=== PATIENT | female | born 1970 | race Two or more races ===

== ENCOUNTER 2018-10-24 09:36 | Inpatient (IN) | payer MEDICAID ==
[2018-10-02 14:47] LABS: BILIRUBIN, URINE NEGATIVE (NEGATIVE); COLOR,URINE PALE YELLOW; GLUCOSE, URINE (UA) NEGATIVE (NEGATIVE); KETONES,URINE NEGATIVE (NEGATIVE); LEUKOCYTE ESTERASE ,URINE NEGATIVE (NEGATIVE); NITRITE,URINE NEGATIVE (NEGATIVE); PH,URINE 5 (4.5-8.0); PROTEIN,URINE NEGATIVE (NEGATIVE); UROBILINOGEN,URINE NORMAL MG/DL (0.0-1.0)
[2018-10-02 14:48] LABS: BASOPHILS % (AUTO) 1.4 % (0.0-2.0); HEMATOCRIT 37.8 % (37.0-47.0); HEMOGLOBIN 12.5 G/DL (12.0-16.0); LYMPHOCYTES % (AUTO) 20.2 % (20.0-45.0); MEAN CORPUSCULAR VOLUME 91 FL (80-99); MONOCYTES % (AUTO) 11.2 % (1.0-10.0); NEUTROPHILS % (AUTO) 65.2 % (45.0-75.0); PLATELET COUNT 368 K/UL (150-450); RED BLOOD COUNT 4.18 M/UL (4.20-5.40); RED CELL DISTRIBUTION WIDTH 15.3 % (11.6-14.8); WHITE BLOOD COUNT 8.1 K/UL (4.8-10.8)
[2018-10-02 14:49] LABS: APPEARANCE,URINE CLEAR
[2018-10-02 15:04] LABS: ANION GAP 11 mmol/L (5-15); BLOOD UREA NITROGEN 16 mg/dL (7-18); CALCIUM 9.8 MG/DL (8.5-10.1); CARBON DIOXIDE 25 MMOL/L (21-32); CHLORIDE 102 MMOL/L (98-107); CREATININE 0.9 MG/DL (0.55-1.30); POTASSIUM 3.8 MMOL/L (3.5-5.1); SODIUM 138 MMOL/L (136-145)
--- NOTE | 2018-10-03 14:22 | Cardiology Report ---
APPROVED REPORT EKG Measurement Heart [id number] NM [id number] [id number] Normal sinus rhythm Right axis deviation Abnormal ECG
--- NOTE | 2018-10-09 14:30 | Pre-op HX & Phy Repo 2 SIG ---
DATE OF ADMISSION: 10/10/2018 SCHEDULED FOR SURGERY: October 10, 2018. HISTORY OF PRESENT ILLNESS: The patient is a 48-year-old female in overall stable health with carcinoma of the right breast, metastatic to axillary lymph nodes, status post neoadjuvant chemotherapy. The patient presented in March 2018 with a 9 cm right breast mass and enlarged palpable right axillary lymph nodes. Core biopsy revealed invasive carcinoma, lobular versus ductal metastatic to axillary lymph nodes. The mass was filling the central breast, although not fixed to the chest wall. There was inversion of the nipple. The patient received neoadjuvant chemotherapy. The tumor was estrogen receptor and progesterone receptor positive, HER2 negative. Her last chemotherapy was September 13, 2018. She has a persistent large central mass and will undergo right modified radical mastectomy. She underwent genetic testing by Oncology, reportedly negative. She had previously been on hormone replacement therapy that she has stopped. PAST MEDICAL HISTORY AND MEDICATIONS: Lisinopril and thyroid. ALLERGIES: Aspirin. OPERATIONS: None. FAMILY HISTORY: There is no family history of breast cancer. PHYSICAL EXAMINATION: GENERAL: The patient is 5 foot 5 inches, 224 pounds. VITAL SIGNS: Within normal limits. HEENT: Within normal limits. LUNGS: Clear. HEART: Regular rhythm. BREASTS: Large and ptotic with the right breast somewhat contracted. Left breast is unremarkable. Right breast has a large central mass with inverted nipple, but the mass is not fixed to the underlying chest wall. There is no longer palpable axillary lymphadenopathy and there was no supraclavicular lymphadenopathy. ABDOMEN: Soft. PELVIC AND RECTAL: Per primary care. EXTREMITIES: Without edema. NEUROLOGIC: Physiologic. IMPRESSION: Stage III carcinoma right breast with metastatic disease to axillary lymph nodes, status post neoadjuvant chemotherapy. PLAN: Right modified radical mastectomy including lymph node dissection. I had a full discussion with the patient regarding the nature of her condition, the nature of the surgery, indications, alternatives, options, and risks including bleeding, infection, need for additional treatment pending final pathology, potential need for radiation despite mastectomy, neuritis or neuralgia, scarring, etc. All questions have been answered. She understands and agrees to proceed. Kelechi Villegas M.D. : DARIEN JOB#: [id number] CC: SARAN
--- NOTE | 2018-10-23 16:30 | Pre-op HX & Phy Repo 2 SIG ---
DATE OF ADMISSION: 10/24/2018 SCHEDULED FOR SURGERY: October 24, 2018. HISTORY OF PRESENT ILLNESS: The patient is a 48-year-old female in overall stable health, who has invasive carcinoma of the right breast, metastatic to axillary lymph nodes, who was scheduled to undergo right modified radical mastectomy. The patient was seen in March of 2018 with a 9 cm right breast mass and enlarged axillary lymph nodes. Biopsy revealed invasive carcinoma, lobular versus ductal, metastatic to the axillary lymph nodes. The mass was not fixed to the chest wall. The estrogen and progesterone receptors were positive, HER2 was negative. The patient had been taking postmenopausal hormones, which she stopped. She was seen by Oncology and received neoadjuvant chemotherapy that ended on 09/13/2018. She has a persistent large central mass with nipple inversion, but the palpable axillary nodes have resolved and she is going to undergo right modified radical mastectomy. PAST MEDICAL HISTORY AND MEDICATIONS: Lisinopril and thyroid. OPERATIONS: Dental and right ear ALLERGIES: Aspirin. REVIEW OF SYSTEMS: the patient is nulliparous PHYSICAL EXAMINATION: GENERAL: The patient is 5 feet 5 inches, 224 pounds. VITAL SIGNS: Her vital signs are within normal limits. HEENT: Within normal limits. LUNGS: Clear. HEART: Regular rhythm. BREASTS: Large and ptotic. The left breast is unremarkable. The right breast has a persistent large central mass with nipple inversion. There is no axillary or supraclavicular lymphadenopathy. ABDOMEN: Soft. PELVIC AND RECTAL: Per primary care. EXTREMITIES: Without edema. Prior toenail infections of fingers and toes resolved with antifungal cream and Augmentin. NEUROLOGIC: Physiologic. IMPRESSION: Stage III carcinoma, right breast with metastatic disease to axillary lymph node, status post neoadjuvant chemotherapy. PLAN: Right modified radical mastectomy. I have had a complete discussion with the patient regarding the nature of her condition, the nature of the surgery, indications, alternatives, options, and risks including bleeding, infection, injury to adjacent structures or organs, neuritis, need for additional surgery, chemotherapy, possible radiation therapy based on final pathology reports, need for drains. flap ischemia, other complications of healing, etc. All questions have been answered. The patient understands and agrees to proceed under general anesthesia. Don Schiller, M.D. DR: JUANCARLOS JOB#: [id number] CC: SARAN
[~2018-10-24] VITALS: Ht 165.1 cm; Wt 123.5 kg
[2018-10-24] VITALS (10 sets, daily range): BP systolic 122–143; BP diastolic 67–86
[2018-10-24] MEDS ORDERED: ARMOUR THYROID30 MG ORAL (10:19)
[2018-10-24] MEDS ORDERED: LISINOPRIL10 MG ORAL (10:19)
[2018-10-24] MEDS ORDERED: XANAX1 MG ORAL (10:19)
--- NOTE | 2018-10-24 11:06 | Pre-Procedure Note/Attestation ---
Pre-Procedure Note/Attestation Complete Prior to Procedure Planned Procedure: right Procedure Narrative: right modified radical mastectomy Indications for Procedure Pre-Operative Diagnosis: carcinoma right breast Attestation I attest that I discussed the nature of the procedure; its benefits; risks and complications; and alternatives (and the risks and benefits of such alternatives ), prior to the procedure, with the patient (or the patient's legal customer care representative). I attest that, if there was a reasonable possibility of needing a blood transfusion, the patient (or the patient's legal customer care representative) was given the [facility] standardized written summary, pursuant to the [place] Blood Safety Act ([place] Health and Safety Code # 1645, as amended). I attest that I re-evaluated the patient just prior to the surgery and that there has been no change in the patient's H&P, except as documented below:none Kelechi Villegas MD Oct 24, 2018 11:06
[2018-10-24] MEDS ORDERED: fentaNYL 100 mcg/2 mL IV ONE (11:20)
[2018-10-24] MEDS ORDERED: Lidocaine 1% MPF 10mg/ml 5ml ONE (11:20)
[2018-10-24] MEDS ORDERED: Midazolam 2mg/2ml Inj ONE (11:20)
[2018-10-24] MEDS ORDERED: Propofol 200mg/20ml IV ONE (11:20)
[2018-10-24] MEDS ORDERED: LR 1000ml 1,000 ML IVLG SCH (11:28)
--- NOTE | 2018-10-24 11:28 | Anethesia Preoperative Eval ---
Anesthesia Pre-op PMH/ROS General Date of Evaluation: Oct 24, 2018 Anesthesiologist: Fabrizio ASA Score: ASA 3 Mallampati Score Class I : Soft palate, uvula, fauces, pillars visible Class II: Soft palate, uvula, fauces visible Class III: Soft palate, base of uvula visible Class IV: Only hard plate visible Mallampati Classification: Class II Surgeon: Bakari Diagnosis: Right breasts cancer Surgical Procedure: right modified radical mastectomy Anesthesia History: none Family History: no anesthesia problems Allergies: Coded Allergies: ASPIRIN (Verified Allergy, Severe, Hives, 10/24/18) Patient NPO?: Yes NPO Date: Oct 23, 2018 NPO Time: 2358 Past Medical History Cardiovascular: Reports: HTN; Denies: CAD, [place], valve dz, arrhythmia, other Pulmonary: Denies: asthma, COPD, NUBIA, other Gastrointestinal/Genitourinary: Denies: GERD, CRI, ESRD, other Neurologic/Psychiatric: Reports: depression/anxiety; Denies: dementia, CVA, TIA, other Endocrine: Reports: hypothyroidism; Denies: DM, steroids, other HEENT: Denies: cataract (L), cataract (R), glaucoma, [place] (L), [place] (R), other Hematology/Immune: Denies: anemia, DVT, bleeding disorder, other Musculoskeletal/Integumentary: Reports: other - Right breast cancer; Denies: OA, RA, DJD, DDD, edema PSxH Narrative: Denies Anesthesia Pre-op Phys. Exam Physician Exam Last Vital Signs Date Time Temp Pulse Resp B/P (MAP) Pulse Ox O2 Delivery O2 Flow Rate FiO2 10/24/18 10:21 Room Air 10/24/18 10:04 97.2 101 18 129/81 (97) 99 Constitutional: NAD Cardiovascular: RRR Respiratory: CTA Airway Exam Mallampati Score: Class II Anesthesia Pre-op A/P Labs see chart Urine Test Test 10/24/18 09:51 Urine HCG, Qualitative Negative (NEGATIVE) Studies Pre-op Studies: EKG - sr Risk Assessment & Plan Assessment: ASA III Plan: GA Status Change Before Surgery: No Pre-Antibiotics Drug: Ancecf 2g Given Within 1 Hr of Incision: Yes Yamilet Vega MD Oct 24, 2018 11:28
[2018-10-24] MEDS ORDERED: Dexamethasone 4mg/ml vial ONE (11:29)
[2018-10-24] MEDS ORDERED: Sterile Water Irrig 1000ml IRRIG ONE (11:30)
[2018-10-24] MEDS ORDERED: LR 1000ml ONE (11:30)
[2018-10-24] MEDS ORDERED: fentaNYL 100 mcg/2 mL IV PRN (11:30)
[2018-10-24] MEDS ORDERED: DiphenhydrAMINE 50mg/ml Inj IVP PRN (11:30)
[2018-10-24] MEDS ORDERED: LORazepam Inj 2mg/ml 1ml IV PRN (11:30)
[2018-10-24] MEDS ORDERED: Metoclopramide 10mg/2ml Inj IVP PRN (11:30)
[2018-10-24] MEDS ORDERED: Midazolam 2mg/2ml Inj IVP PRN (11:30)
[2018-10-24] MEDS ORDERED: Hydromorphone 0.5mg/0.5ml inj IVP PRN (11:30)
[2018-10-24] MEDS ORDERED: NS Irrig 1000ml IRRIG ONE (12:03)
--- NOTE | 2018-10-24 13:51 | Brief Operative Note ---
Immediate Post Operative Note Operative Note Pre-op Diagnosis: carcinoma right breast Procedure: right modified radical mastectomy Post-op Diagnosis: same Post-op Diagnosis: same as pre-op Findings: consistent w/pre-op dx studies Surgeon: kadie Anesthesiologist: bi Specimen: yes - right breast and axillary lymph nodes Complications: none Condition: stable Fluids: see anesthesia record Estimated Blood Loss: minimal Drains: CROW Implant(s) used?: No Kelechi Villegas MD Oct 24, 2018 13:51
--- NOTE | 2018-10-24 13:59 | Immediate Post-Op Evaluation ---
Immediate Post-Op Evalulation Immediate Post-Op Evalulation Procedure: Right modified radical mastectomy Date of Evaluation: Oct 24, 2018 Time of Evaluation: 13:58 IV Fluids: 1.5L Blood Products: 0 Estimated Blood Loss: 25 Urinary Output: 0 Blood Pressure Systolic: 128 Blood Pressure Diastolic: 75 Pulse Rate: 88 Respiratory Rate: 16 O2 Sat by Pulse Oximetry: 92 Temperature (Fahrenheit): 97 Pain Score (1-10): 0 Nausea: No Vomiting: No Complications 0 Patient Status: awake, reacts, patent, none Hydration Status: adequate Drug: Ancef 2g Given Within 1 Hr of Incision: Yes Yamilet Vega MD Oct 24, 2018 13:59
[2018-10-24] MEDS ORDERED: HYDROcodone/Acetamin 5/325 tab ORAL PRN (16:00)
[2018-10-24] MEDS ORDERED: HYDROmorphone 1mg/ml Carpuject SUBQ PRN (16:00)
[2018-10-24] MEDS ORDERED: D5 1/2NS w/KCl 20mEq 1,000 ML IV SCH (16:30)
--- NOTE | 2018-10-24 17:30 | Operative Note - Dictated ---
DATE OF OPERATION: 10/24/2018 SURGEON: Kelechi Villegas M.D. PIPE [employer]EMAN SURGEON: None. ANESTHESIOLOGIST: Dr. Dinh. ANESTHESIA: General endotracheal. PREOPERATIVE DIAGNOSIS: Invasive carcinoma, right breast. POSTOPERATIVE DIAGNOSIS: Invasive carcinoma, right breast. OPERATION PERFORMED: Right modified radical mastectomy. INDICATIONS: The patient presented at the end of last year with a 9 cm mass in her right breast with an inversion of the nipple and a core biopsy revealed invasive carcinoma, lobular versus ductal with metastasis to axillary lymph nodes. She received neoadjuvant chemotherapy, but the large mass centrally in the breast persisted. The palpable axillary lymph nodes resolved. The lesion was estrogen and progesterone receptor positive and HER2 negative. DESCRIPTION OF PROCEDURE: The patient was taken to the operating room and under general endotracheal anesthesia with sequential compression device stockings in place, she was prepped and draped in the usual fashion incorporating the right upper extremity into the sterile field. A transversely oriented elliptical incision was made achieving hemostasis with cautery. Flaps were dissected to the sternum, clavicle, costal margin, latissimus dorsi. The breast was resected including the pectoralis fascia using cautery and the Thunderbeat electrical surgical device for hemostasis. After mobilizing the entire breast, left only by attachments to the axilla, an axillary lymph node dissection was performed starting at the axillary vein achieving hemostasis with the Thunderbeat electrocautery device. The specimen was oriented for the pathology with sutures medial and superior and given off the field. The field was copiously irrigated and hemostasis carefully achieved with cautery through separate stab incisions inferolaterally. Two flat large Noel-Buckley drains were placed, one into the axilla, one under the flaps, both sutured to the skin with 2-0 nylon skin suture. After ascertaining the hemostasis was secured, the incision was closed with interrupted 2-0 Vicryl, deep dermal subcutaneous sutures followed by jesus. When the drains were connected, there was good apposition of the flaps to the chest wall. Dry sterile dressings were applied. Final sponge and needle counts were correct. The patient tolerated the procedure well and left the operating room in good condition. Kelechi Villegas M.D. DR: JUANCARLOS JOB#: [id number] CC:
[2018-10-24] MEDS: ceFAZolin sod 1 GM in D5W 55 ML IV SCH (22:00)
[2018-10-25] VITALS: BP 119/71
[2018-10-25 04:00] VITALS: BP 100/58
[2018-10-25] MEDS: ceFAZolin sod 1 GM in D5W 55 ML IV SCH (05:40)
[2018-10-25 06:15] LABS: BASOPHILS % (AUTO) 0.2 % (0.0-2.0); HEMATOCRIT 34.8 % (37.0-47.0); HEMOGLOBIN 11.6 G/DL (12.0-16.0); LYMPHOCYTES % (AUTO) 13.2 % (20.0-45.0); MEAN CORPUSCULAR VOLUME 88 FL (80-99); MONOCYTES % (AUTO) 6.4 % (1.0-10.0); NEUTROPHILS % (AUTO) 80.1 % (45.0-75.0); PLATELET COUNT 302 K/UL (150-450); RED BLOOD COUNT 3.96 M/UL (4.20-5.40); RED CELL DISTRIBUTION WIDTH 14.7 % (11.6-14.8); WHITE BLOOD COUNT 8.3 K/UL (4.8-10.8)
[2018-10-25 08:00] VITALS: BP 111/67
[2018-10-25 12:00] VITALS: BP 111/68
--- NOTE | 2018-10-25 14:57 | General Progress Note ---
Progress Note Progress Note AVSS Feels okay, ambulates to bathroom, ate breakfast. Pain controlled with [place] earlier Right mastectomy incision dry with small area ischemia superior flap lateral 1/ 3 area - jesus intact CROW drains: 100cc #1 since OR and j@2 20 Hgb 11.6 (12.5 pre-op) Imp. Stable with moderate bloody CROW drainage and small area flap ischemia Plan: continue in hospital with IV Ancef, monitor CROW drains q4h and prn RN to teach patient care of drains CBC in AM Kelechi Villegas MD Oct 25, 2018 14:57
[2018-10-25] MEDS ORDERED: ALPRAZolam 0.5mg tab ORAL PRN (15:45)
[2018-10-25] MEDS ORDERED: Lisinopril 20mg tab ORAL SCH (15:45)
[2018-10-25 16:00] VITALS: BP 121/67
--- NOTE | 2018-10-25 16:04 | 48 Hour Post Anesthesia Eval ---
Post Anesthesia Evaluation Procedure: Right modified radical mastectomy Date of Evaluation: Oct 25, 2018 Time of Evaluation: 16:03 Blood Pressure Systolic: 111 0: 68 Pulse Rate: 96 Respiratory Rate: 17 Temperature (Fahrenheit): 97.6 O2 Sat by Pulse Oximetry: 98 Airway: patent Nausea: No Vomiting: No Pain Intensity: 2 Hydration Status: adequate Cardiopulmonary Status: Stable Mental Status/LOC: patient returned to baseline Follow-up Care/Observations: 0 Post-Anesthesia Complications: 0 Follow-up care needed: N/A Henri Perez MD Oct 25, 2018 16:04
[2018-10-25 20:00] VITALS: BP 128/70
[2018-10-26] VITALS: BP 122/69
[2018-10-26 04:00] VITALS: BP 125/75
[2018-10-26 05:43] LABS: BASOPHILS % (AUTO) 0.6 % (0.0-2.0); EOSINOPHILS % (AUTO) 0.6 % (0.0-3.0); HEMATOCRIT 35.1 % (37.0-47.0); HEMOGLOBIN 11.5 G/DL (12.0-16.0); LYMPHOCYTES % (AUTO) 28.1 % (20.0-45.0); MEAN CORPUSCULAR VOLUME 88 FL (80-99); MONOCYTES % (AUTO) 9.6 % (1.0-10.0); NEUTROPHILS % (AUTO) 61.1 % (45.0-75.0); PLATELET COUNT 258 K/UL (150-450); RED BLOOD COUNT 3.99 M/UL (4.20-5.40); RED CELL DISTRIBUTION WIDTH 15.1 % (11.6-14.8); WHITE BLOOD COUNT 8.2 K/UL (4.8-10.8)
[2018-10-26 08:00] VITALS: BP 117/68
--- NOTE | 2018-10-26 08:51 | General Progress Note ---
Progress Note Progress Note AVSS Not needing any analgesics. Hs learned how to care for CROW drains Right mastectomy incision dry and intact, mild ischemia superolateral is decreased CROW 75+25 Hgb stable 11.5 Imp. doing well Plan: discharge with supplies instructions/limitations provided/discussed f/u office 10/31 Kelechi Villegas MD Oct 26, 2018 08:51
[2018-10-26] MEDS ORDERED: Lisinopril 20mg tab ORAL SCH (09:00)
[2018-10-26 09:18] VITALS: BP 117/68
--- NOTE | 2018-10-27 06:30 | Discharge Summary ---
Discharge Summary Discharge Summary _ DATE OF ADMISSION: 10/24/2018 DATE OF DISCHARGE: 10/26/2018 DISCHARGED BY: Dr. Kelechi Villegas HISTORY OF PRESENT ILLNESS: The patient is a 48-year-old female in overall stable health, who has invasive carcinoma of the right breast, metastatic to axillary lymph nodes, who was scheduled to undergo right modified radical mastectomy. The patient was seen in March of 2018 with a 9 cm right breast mass and enlarged axillary lymph nodes. Biopsy revealed invasive carcinoma, lobular versus ductal, metastatic to the axillary lymph nodes. The mass was not fixed to the chest wall. The estrogen and progesterone receptors were positive, HER2 was negative. The patient had been taking postmenopausal hormones, which she stopped. She was seen by Oncology and received neoadjuvant chemotherapy that ended on 09/13/2018. She had a persistent large central mass with nipple inversion, but the palpable axillary nodes have resolved and was admitted to undergo right radical mastectomy. BRIEF HOSPITAL COURSE: Patient was admitted and underwent right radical mastectomy. Two flat large Noel-Buckley drains were placed, one into the axilla, and under the flaps. The patient tolerated the procedure well and left the operating room in good condition. She was admitted for postop care. She was given pain management. She was placed on SCDs for DVT prophylaxis. She was encouraged as of incentive spirometer. Postop day #1, she was able to ambulate to the bathroom and was able to tolerate diet. Pain was controlled with [place]. Right mastectomy incision was dry with small area of ischemia on superior flap lateral one third area. Raz were intact. She was continued with IV Ancef. Drain output was monitored. Postop day #2, she had good pain control and did not require any analgesics. Right mastectomy incision was dry and intact; mild ischemia superolateral was decreased. Hemoglobin was stable. She learned how to care for the drains. Patient was eventually discharged home. PREOPERATIVE DIAGNOSIS: Invasive carcinoma, right breast. POSTOPERATIVE DIAGNOSIS: Invasive carcinoma, right breast. OPERATION PERFORMED: Right modified radical mastectomy. DISPOSITION: Patient was discharged home. DISCHARGE MEDICATIONS: Refer to Discharge Medication List. DISCHARGE INSTRUCTIONS: Follow-up 10/31/2018. I have been assigned to complete a discharge summary on this account, I was not involved with the patient's management. Hailey Castellanos NP Oct 27, 2018 06:30
== END 2018-10-26 10:41 | disposition home or self-care (01) | DRG 362 ==
LOC: SUR 09:36 → 3E 15:16
PROC: 07T50ZZ Resection of Right Axillary Lymphatic, Open Approach (ICD-10-PCS; 2018-10-24)
PROC: 0HTT0ZZ Resection of Right Breast, Open Approach (ICD-10-PCS; principal; 2018-10-24 11:30)
DX: C50.111 Malignant neoplasm of central portion of right female breast (principal); L76.82 Other postprocedural complications of skin and subcutaneous tissue; C77.3 Secondary and unspecified malignant neoplasm of axilla and upper limb lymph nodes
CPT/HCPCS: 36415; 80048; 81001; 81025; 85025; 85610; 85730; 87081; 93005; 94003; 94150; J2250; J2405; J2765